=== PATIENT | male | born 1975 | race Two or more races ===

== ENCOUNTER 2021-01-07 10:19 | Emergency (ER) | payer BC, OTHER ==
[~2021-01-07] VITALS: Ht 172.7 cm; Wt 133.8 kg
[2021-01-07 12:30] VITALS: BP 140/80
[2021-01-07] MEDS ORDERED: KETOROLAC TROMETH 60MG/2ML VIAL IM ONE (13:00)
== END 2021-01-07 13:41 | disposition home or self-care (01) ==
LOC: ER 10:19
DX: K64.4 Residual hemorrhoidal skin tags (principal)
CPT/HCPCS: 96372; 99283; J1885